=== PATIENT | female | born 1985 | race Caucasian/White ===

== ENCOUNTER → 2021-05-24 00:06 | Outpatient (CLI) | payer OTHER, SELFPAY ==
[2021-05-24 18:03] LABS: SARS-CoV-2 RNA PCR Negative
== END ==
PROVIDERS: Visit Provider Surgery Plastic and Reconstructive Surgery
DX: Z01.812 Encounter for preprocedural laboratory examination (principal); Z20.822 Contact with and (suspected) exposure to COVID-19
CPT/HCPCS: C9803; U0003; U0005

== ENCOUNTER 2021-05-27 00:41 | Day surgery (SDC) | payer OTHER, SELFPAY ==
[2021-05-19 15:11] VITALS: BMI 20.7
[2021-05-27] VITALS (9 sets, daily range): BP systolic 99–112; BP diastolic 62–71; PULSE 64–99; RESP 12–18; TEMP 36.2–36.5; O2SAT 95–100
[2021-05-27] MEDS: LACTATED RINGERS 1,000 ML 30 ML IV CONT ×3 (11:00→14:22)
--- NOTE | 2021-05-27 11:47 | WPDHPUPDATE1 ---
History and Physical Update Update Date/Time: 05/27/21 11:47 History and Physical has been reviewed, including an updated exam of the patient. There are NO changes in the patient's condition. Risks, benefits, and alternatives have been discussed and questions answered. Patient agrees to proceed with procedure.
--- NOTE | 2021-05-27 12:07 | P.PNAN_ITS ---
Anes - Initial Pre Proc Eval Procedure: Operation Date: 05/27/21 12:30 Proposed Procedures p Bilateral Breast Augmentation - Anil Maradiaga MD Date/Time: 05/27/21 12:07 Surgeon: Anil Maradiaga MD Pre Op Diagnosis: micromastia Patient Data Age: 35 Gender: F Height: 1.65 m Weight: 56.7 kg Allergies Allergy/AdvReac Type Severity Reaction Status Date / Time No Known Allergies Allergy Unverified 05/27/21 12:13 Home Medications Medication Instructions Recorded Confirmed Type gabapentin 100 mg capsule 400 mg PO DAILY 04/01/21 05/27/21 History carisoprodol 350 mg tablet 350 mg PO TID PRN #21 tablet 05/22/21 05/27/21 Rx docusate sodium 100 mg capsule 100 mg PO DAILY #14 cap 05/22/21 05/27/21 Rx ondansetron HCl 4 mg tablet 4 mg PO Q8H #21 tablet 05/22/21 05/27/21 Rx oxycodone-acetaminophen 5 mg-325 1 tablet PO Q6H PRN #15 tablet 05/22/21 05/27/21 Rx mg tablet Patient hx anesthesia problems: none Family hx anesthesia problems: none Results Review: All pre-operative results and documents have been reviewed as part of the pre-operative evaluation. [facility] Surgical History Surgical History H/O tubal ligation Social History Social History Smoking packs per day: 0.5 Smoking cigarettes per day: 10.0 Years smoked: 15 Smoking pack-years: 7.50 Smoking status: Former smoker Smoking end date: 03/30/21 Alcohol intake: never Substance use: never Substance use type: does not use Living arrangements: with family Spiritual care concerns: No Anes - Eval Final PreProcedure Day of Procedure 05/27/21 12:07 Patient weight: thin Heart: regular rate and rhythm Lungs: clear to auscultation Airway: Mallampati scale class II Neurological: alert and oriented Last oral intake: >/= 8 hours ASA classification: II Emergent: no Anesthetic plan: proceed Anesthesia type and monitoring: general LMA and standard monitoring Results Review: All pre-operative results and documents have been reviewed as part of the pre-operative evaluation. Informed Consent: The patient's anesthetic plan and its attendant risks and benefits were discussed with the patient/family/POA. Questions were solicited and answers provided to the satisfaction of the patient/family/POA.
--- NOTE | 2021-05-27 12:08 | W.PM.PROC2 ---
Procedure Note - Detailed Date of Procedure 05/27/21 Pre-op Diagnosis micromastia Post-op Diagnosis same Procedure Performed Bilateral Argentation Mammaplasty Surgeon Anil Maradiaga MD Anesthesia general Findings Bilateral Augmentation Mammaplasty Neelima Donato SoftTouch 415cc Right - REF# [id number] SN [id number] Left - REF# [id number] SN [id number] Description of Procedure She is here today for bilateral breast augmentation. Previously and again today the risks, benefits, alternatives were discussed in extensive detail. I wanted her to be very realistic about the risks involved as well as expectations. She understands she has a degree of glandular ptosis and may ultimately [facility] We discussed aftercare and what to monitor for. Made sure answered all of her questions to her satisfaction today and consent was obtained. Marked in the preoperative holding area with their verification. The patient was taken to the operating room placed supine on the operating table. Anesthesia was provided by anesthesiology. A surgical time-out was taken. We cleansed the skin and 1% lidocaine and 0.25% Marcaine with epinephrine was used anesthetize as a field block. She was prepped and draped in a standard sterile fashion. Tegaderm nipple Schwarz were placed. A 15 blade used to make an incision along the inframammary fold. Dissection was continued at 45 degree angle until the chest wall as identified. Elevated pre-pectoral in a dual plane fashion as described above. I incised the pectoralis major along its inferior border and completely released the inferior border leaving the medial border intact. I created a subpectoral pocket in the appropriate dimensions based on our preoperative planning for the implant. I then copiously irrigated with saline solution and verified a strict hemostasis. Next the use a triple antibiotic and Betadine containing solution to irrigate the pocket. I washed my gloves with the triple antibiotic and Betadine solution. We washed the implant immediately upon opening it with this solution and only opened it when we needed it. I used implant funnel and no-touch technique. The implant was introduced into the pocket using the funnel. Having verified positioning of the implant this was closed using 2-0 Vicryl followed by 3-0 Monocryl in a running subcuticular 4-0 Monocryl followed by tissue glue. Fluffs, Fer wrap, and surgical bra were placed. Patient was awoke and taken to PACU without difficulty. All instrument sponge counts were correct at the end of the case. Estimated Blood Loss 20 Drains No Packing No Pathology none sent Complications No immediate complications Condition stable Disposition PACU
[2021-05-27] MEDS: ceFAZolin 2 GM/D5W 50 ML 2 GM/50 ML BAG IVPB (12:28)
[2021-05-27] MEDS: TRANEXAMIC ACID 1,000MG/ISO100 1,000 MG/100 ML BAG 200 MG IVPB (12:28)
[2021-05-27] MEDS: LIDO 1%/EPINEPHRINE 1:100,000 50 ML VIAL 30 ML INFILTRATE (12:49)
[2021-05-27] MEDS: BUPIVACAINE HCL 0.25% PF 30 ML VIAL INFILTRATE (12:50)
[2021-05-27] MEDS: fentaNYL CITRATE INJ (*CRX) 100 MCG/2 ML VIAL 25 MCG IV PUSH ×7 (13:59→14:22)
[2021-05-27] MEDS: oxyCODONE HCL (*CRX) 5 MG TAB IR PO (14:46)
[2021-05-27] MEDS: KETOROLAC 30 MG/ML VIAL (*BKC) IV PUSH (15:21)
== END 2021-05-27 15:45 | disposition home or self-care (01) ==
PROVIDERS: Visit Provider Surgery Plastic and Reconstructive Surgery
PROC: (CPT 19325; principal; 2021-05-27 12:30)
DX: Z41.1 Encounter for cosmetic surgery (principal); N64.82 Hypoplasia of breast; Z87.891 Personal history of nicotine dependence
CPT/HCPCS: 19325; A9270; J0690; J1100; J1580; J1885; J2250; J2405; J2704; J3010; J7120